=== PATIENT | male | born 1975 | race Asian ===

== ENCOUNTER 2023-09-28 08:12 | Day surgery (SDC) | payer OTHER ==
[~2023-09-28] VITALS: Ht 170.2 cm; Wt 79.8 kg
[2023-09-28] MEDS ORDERED: MEPERIDINE 100 MG INJ. 100 MG/ML VIAL ONE (10:05)
[2023-09-28] MEDS ORDERED: MIDAZOLAM HCL 5 MG/5 ML VIAL ONE (10:06)
[2023-09-28 11:10] VITALS: O2SAT 98
[2023-09-28 15:30] VITALS: BP_SYST 130; PULSE 77; RESP 18
== END 2023-09-28 13:10 | disposition home or self-care (01) ==
LOC: SDS 08:12 → SMU 08:13 → SDS 13:10
PROVIDERS: ATTEND Internal Medicine Gastroenterology
DX: R19.5 Other fecal abnormalities (principal); K62.5 Hemorrhage of anus and rectum; K64.8 Other hemorrhoids; E78.5 Hyperlipidemia, unspecified; G47.30 Sleep apnea, unspecified; Z80.0 Family history of malignant neoplasm of digestive organs
CPT/HCPCS: 99152; 45378; G0378; J2250; J2175